=== PATIENT | female | born 1990 | race Hispanic/Latino ===

== ENCOUNTER 2024-01-16 14:03 | Emergency (ER) | payer SELFPAY ==
[2024-01-16 14:16] VITALS: BP 151/93; PULSE 96; RESP 16; TEMP 36.9; O2SAT 100
--- NOTE | 2024-01-16 16:06 | ED.SKABFB ---
HPI - Skin/Abscess/Foreign Bdy General Chief complaint: Skin/Abscess/Foreign Body Stated complaint: cyst Time Seen by Provider: 01/16/24 14:26 Source: patient Mode of arrival: ambulatory Limitations: no limitations History of Present Illness HPI narrative: Patient is a 33-year-old female who presents the ED with concern for a right-sided Bartholin's cyst. Patient reports history of Bartholin's cyst/ abscess around 7 years ago which required drainage and a Word catheter. She 1st began noticing an area of irritation a few days ago. States it has increased in size over the last couple of days to the point she is having a hard time ambulating today due to the pain. Has not taken anything for pain. Denies fevers. Related Data Allergies Allergy/AdvReac Type Severity Reaction Status Date / Time No Known Allergies Allergy Unverified 05/16/17 09:02 Review of Systems Review of Systems: All systems reviewed & are unremarkable except as noted in HPI. All systems reviewed & are unremarkable except as noted in HPI and below Exam Narrative: GENERAL: Well appearing, obese with BMI of 30.8, non-toxic, in no acute distress. HEAD: Normocephalic, atraumatic. RESPIRATORY: Airway patent, respirations nonlabored. CARDIOVASCULAR: Regular rate and rhythm PELVIC: Normal external genitalia. Large area of fullness throughout right inferior inner vulvar region, consistent with Bartholin's cyst/abscess. Focal TTP. Circular area of scarring in center of area of fullness. No abnormal genital lesions. No abnormal bleeding or discharge. MUSCULOSKELETAL: Moves all extremities. No gross deformities. SKIN: Warm, dry, normal color. NEURO: A&O X3. Speech clear. PSYCHIATRIC: Appropriate mood and affect. Normal interaction. Course Vital Signs Vital signs: Vital Signs Temperature 98.4 F 01/16/24 14:16 Pulse Rate 96 01/16/24 14:16 Respiratory Rate 16 01/16/24 14:16 Blood Pressure 151/93 H 01/16/24 14:16 Pulse Oximetry 100 01/16/24 14:16 Oxygen Delivery Room Air 01/16/24 14:16 Temperature 98.4 F 01/16/24 14:16 Pulse Rate 96 01/16/24 14:16 Respiratory Rate 16 01/16/24 14:16 Blood Pressure 151/93 H 01/16/24 14:16 Pulse Oximetry 100 01/16/24 14:16 Oxygen Delivery Room Air 01/16/24 14:16 Procedures Abscess I/D bartholin's gland: Date of Incision: 01/16/24 Time of Incision: 15:50 Side (if applicable): right Sedation/analgesia: none Local Anesthetic: lidocaine 1% Amount of anesthesia used (mL): 7 Technique: incised with #11 blade and probed loculations Amount of fluid expressed (mL): 30 Irrigation: Yes Packing used?: none I&D Results: Pus and Blood Complications: other (none) MDM - Skin/Abscess/Foreign Bdy MDM Narrative Medical decision making narrative: Exam consistent with Bartholin cyst/abscess. I & D performed. Patient tolerated procedure well. Will be started on Bactrim. Advised to follow-up with OBGYN for further evaluation and more definitive management. Advised to continue sitz baths/warm compresses. Given strict return precautions. She agrees with plan. D/C in stable condition. Medical Records Attestation: I reviewed the patient's medical records. Discharge Plan Discharge Clinical Impression: Abscess of Bartholin gland Patient Disposition: Home, Self-Care Condition: Stable Instructions: Antibiotic Form, Abscess (ED), Bartholin Cyst (ED), Sitz Bath (DC), Incision and Drainage (ED) Additional Instructions: Take antibiotics as prescribed. Recommend frequent sitz baths or warm compresses to area throughout the day. Follow up with your OBGYN for further evaluation. Return to the ED if you experience worsening or severe symptoms, severe pain, fevers, or any other symptoms of concern. Prescriptions: New sulfamethoxazole-trimethoprim [Bactrim DS] 800-160 mg tablet 1 tablet PO Q12H 7 Days Qty:
[2024-01-16] MEDS: SULFAMETHOXAZOLE/TRIMETHOPRIM 800/160 MG DS TABLET 1 TAB PO (16:30)
== END 2024-01-16 16:37 | disposition home or self-care (01) ==
PROVIDERS: Emergency Provider Physician Assistant
DX: N75.1 Abscess of Bartholin's gland (principal)
CPT/HCPCS: 56420; 99283; A9270

== ENCOUNTER 2024-11-09 10:49 | Emergency (ER) | payer SELFPAY ==
[2024-11-09 11:00] VITALS: BP 195/99; PULSE 76; RESP 18; TEMP 37; O2SAT 100
[2024-11-09 11:41] VITALS: BP 176/80; PULSE 67; RESP 20; O2SAT 100
--- NOTE | 2024-11-09 11:59 | ED_ITS ---
HPI - Recheck/Abnormal Lab/Rx General Chief Complaint: Recheck/Abnormal Lab/Rx Stated Complaint: high blood pressure today Time Seen by Provider: 11/09/24 11:52 Source: patient Mode of arrival: ambulatory Limitations: no limitations History of Present Illness HPI narrative: This is a 34 year old female that presents to the ER for high blood pressure. Reports she has known history of hypertension. Stopped her blood pressure medication a couple of months ago because she was wanting to get . She tried to make an appointment with PCP to discuss her blood pressure and it was elevated, she was sent to the ER. She is currently about 7 weeks . She is not having any symptoms. Denies chest pain, shortness of breath, abdominal pain, headache, vaginal bleeding. Related Data Allergies Allergy/AdvReac Type Severity Reaction Status Date / Time No Known Allergies Allergy Unverified 05/16/17 09:02 Review of Systems 2 Review of Systems: All systems reviewed & are unremarkable except as noted in HPI and below PMFSH Past Medical History Medical History (Updated 11/09/24 @ 14:59 by Altagracia Turner PA-C) History of hypertension Exam 2 Narrative: GENERAL: Well-appearing, well-nourished, and in no acute distress. HEAD: Normocephalic, atraumatic. EYES: EOMI. ENT: Nares clear, no rhinorrhea or epistaxis. Mucous membranes moist. Oropharynx without tonsillar hypertrophy exudate or other lesions. CHEST: Clear to auscultation. No respiratory distress. No wheezes rales or rhonchi HEART: Regular rate and rhythm. No murmur heard. Normal peripheral pulses. ABDOMEN: Soft, nontender, nondistended, normal active bowel sounds. EXTREMITIES: Normal range of motion. No edema. SKIN: Warm, dry, no rash. NEURO: No focal deficits. Alert and oriented x3. PSYCH: Normal mood and affect Course Consultations Consultation #1: Spoke with OB video production coordinator. Recommends starting patient on Labetalol 20mg twice daily. Will give first dose and make sure patient's blood pressure responds. He recommends follow up within one week Date: 11/09/24 Vital Signs Vital signs: Vital Signs Temperature 98.6 F 11/09/24 11:00 Pulse Rate 76 11/09/24 11:00 Respiratory Rate 18 11/09/24 11:00 Blood Pressure 195/99 H 11/09/24 11:00 Pulse Oximetry 100 11/09/24 11:00 Oxygen Delivery Room Air 11/09/24 11:00 Temperature 98.6 F 11/09/24 11:00 Pulse Rate 83 11/09/24 14:19 Respiratory Rate 18 11/09/24 14:19 Blood Pressure 160/81 H 11/09/24 14:19 Pulse Oximetry 99 11/09/24 14:19 Oxygen Delivery Room Air 11/09/24 11:00 MDM - Recheck/Abnormal Lab/Rx MDM Narrative Medical decision making narrative: Patient presents to the emergency department for elevated blood pressure reading. Reports known history of hypertension. She is supposed to take losartan. She was planning on getting so had stopped taking it months ago. Tried to establish with a PCP today who sent her to the ER for elevated blood pressure reading. She does not have any symptoms with this. Blood pressure initially elevated in the 190s systolic. This a down turn in the 160s without intervention initially. CBC metabolic panel without concerning findings. Urine with white blood cells, patient does not have any urinary symptoms. This will be sent for culture. Quantitative beta HCG 46,015. Spoke with OB video production coordinator. Recommends starting patient on Labetalol 20mg twice daily. Will give first dose and make sure patient's blood pressure responds. He recommends follow up within one week. Blood pressure has continued to trend down. Currently 135/79. She does report she has an OB she will be establishing with. I will also give her our OB on-call if she needs anything. She was given warnings to return to the ER Differential Diagnosis Differential diagnosis: Likely other (Hypertension, hypertensive urgency) Lab Data Attestation: I reviewed the patient's lab results. 11/09/24 12:07 11/09/24 12:07 Labs: Lab Results 11/09/24 Range/Units 12:07 WBC 11.6 H (4.5-10.0) K/mm3 RBC 4.69 (4.2-5.4) M/mm3 Hgb 11.8 L (12.0-15.0) g/dL Hct 36.8 L (37.0-47.0) % MCV 78.5 L (80-100) fl MCH 25.2 L (26-34) pg MCHC 32.1 (32-36) g/dl RDW 14.9 H (11.5-14.5) % Plt Count 271 (150-375) k/mm3 MPV 10.1 (7.4-10.4) fl Immature Gran % (Auto) 0.3 (0-0.5) % Neut % (Auto) 67.7 (45.5-73.1) % Lymph % (Auto) 20.9 (18.3-44.2) % [place] % (Auto) 5.8 (2.6-8.5) % Eos % (Auto) 4.9 H (0-4.4) % Baso % (Auto) 0.4 (0.2-1.2) % Lymph # (Auto) 2.42 (0.9-3.2) K/mm3 [place] # (Auto) 0.7 H (0.1-0.6) K/mm3 Eos # (Auto) 0.6 H (0-0.3) K/mm3 Baso # (Auto) 0.1 (0.0-0.1) K/mm3 Abs Immat Gran (auto) 0.04 H (0.00-0.031) K/mm3 Absolute Neuts (auto) 7.8 H (1.3-6.7) K/mm3 Absolute Nucleated RBC 0.000 (0.0-0.012) K/mm3 Nucleated RBC % 0.0 (0.0-0.2) % Sodium 135 L (137-145) mmol/L Potassium 3.4 (3.4-5.0) mmol/L Chloride 103 (98-107) mmol/L Carbon Dioxide 25 (22-30) mmol/L Anion Gap 7 (4-12) mmol/L BUN 10 (7-17) mg/dL Creatinine 0.66 L (0.7-1.0) mg/dL Estim Creat Clear Calc 101 ml/min Estimated GFR > 60 (59 - ) Glucose 82 (65-110) mg/dL Calcium 8.8 (8.4-10.2) mg/dL Total Bilirubin 0.1 L (0.2-1.3) mg/dL AST 24 (14-36) U/L ALT 22 (6-35) U/L Alkaline Phosphatase 100 (38-126) U/L Total Protein 7.7 (6.3-8.2) g/dL Albumin 3.8 (3.5-5.1) g/dL Beta HCG, Quant 58539.00 mIU/ML Urine Color Yellow (Yellow) Urine Appearance Cloudy H (Clear) Urine pH 6.5 (5.0-9.0) Ur Specific [place] 1.011 (1.001-1.035) Urine Protein 1+ H (Negative) mg/dL Urine Glucose (UA) Negative (Negative) mg/dL Urine Ketones Trace H (Negative) mg/dL Ur Blood (Man) Negative (Negative) Urine Nitrate Negative (Negative) Urine Bilirubin Negative (Negative) Urine Urobilinogen 0.2 (<2.0) mg/dL Leukocyte Esterase Rfl 3+ H (Negative) CLARK/UL Urine RBC 0-2 (0-2) /hpf Urine WBC >100 H (0-3) /hpf Ur Squamous Epith Cells Moderate (Few) /hpf Urine Bacteria 2+ H /hpf Urine Casts 3-5 Critical Care Time Critical Care Time Critical Care Time: No Discharge Plan Discharge Clinical Impression: Hypertension Qualifiers: Hypertension type: unspecified Qualified Code(s): I10 - Essential (primary) hypertension Patient Disposition: Home Condition: Improved Instructions: Antibiotic Form, Hypertension During (ED) Additional Instructions: Return to the ER if you experience fever, chest pain, shortness of breath, abdominal pain with nausea and vomiting, you are unable to keep down liquids or solids, vaginal bleeding, or any other symptoms that are concerning to you Take Labetalol as prescribed. Monitor your blood pressure daily at home and record these readings so you can bring them to your follow up appointment Follow up with your OB Patient Language: Faroese Prescriptions: New labetalol 200 mg tablet 200 mg PO Q12H 30 Days Qty: 60 0RF No Action sulfamethoxazole-trimethoprim [Bactrim DS] 800-160 mg tablet 1 tablet PO Q12H 7 Days Qty: 14 0RF Follow-up/Referrals: UNKNOWN,DOCTOR [Primary Care Provider] - Bubba Dumont MD [Physician] -
[2024-11-09 12:19] LABS: Hematocrit 36.8 % (37.0-47.0); Hemoglobin 11.8 g/dL (12.0-15.0); Immature Granulocyte Percent A 0.3 % (0-0.5); Lymphocytes Absolute Auto 2.42 K/mm3 (0.9-3.2); Mean Corpuscular HGB Conc 32.1 g/dl (32-36); Mean Corpuscular Hemoglobin 25.2 pg (26-34); Mean Corpuscular Volume 78.5 fl (80-100); Nucleated Red Blood Cells Absolute Auto 0.000 K/mm3 (0.0-0.012); Nucleated Red Blood Cells Perc 0.0 % (0.0-0.2); Platelet Count Result 271 k/mm3 (150-375); Red Blood Count 4.69 M/mm3 (4.2-5.4); White Blood Count 11.6 K/mm3 (4.5-10.0)
[2024-11-09 12:27] LABS: Add Urine Microscopic? YES; Appearance Urine Cloudy (Clear); Glucose Urine UA Negative (Negative); Leukocyte Esterase Ur 3+ LEU/UL (Negative); Nitrate Urine Negative (Negative); Specific Grav Ur 1.011 (1.001-1.035)
[2024-11-09 12:38] LABS: Alanine Aminotransferase 22 U/L (6-35); Albumin Level 3.8 g/dL (3.5-5.1); Alkaline Phosphatase 100 U/L (38-126); Anion Gap 7 mmol/L (4-12); Aspartate Amino Transferase 24 U/L (14-36); Bilirubin,Total 0.1 mg/dL (0.2-1.3); Blood Urea Nitrogen 10 mg/dL (7-17); Calcium 8.8 mg/dL (8.4-10.2); Carbon Dioxide 25 mmol/L (22-30); Chloride 103 mmol/L (98-107); Estimated CRCL calculation 101 ml/min; Estimated Glomerular Filt Rate > 60; Glucose 82 mg/dL (65-110); Potassium 3.4 mmol/L (3.4-5.0); Sodium 135 mmol/L (137-145); Total Protein 7.7 g/dL (6.3-8.2)
[2024-11-09 13:24] LABS: Beta HCG Quantitative 46015.00 mIU/ML
[2024-11-09 13:35] VITALS: PULSE 78
[2024-11-09] MEDS: LABETALOL HCL 100 MG TABLET 200 MG PO (13:35)
[2024-11-09 14:19] VITALS: BP 160/81; PULSE 83; RESP 18; O2SAT 99
[2024-11-09 15:08] VITALS: BP 135/79; PULSE 74; RESP 20; O2SAT 98
== END 2024-11-09 15:18 | disposition home or self-care (01) ==
PROVIDERS: Emergency Provider Physician Assistant
DX: O26.891 Other specified pregnancy related conditions, first trimester (principal); I10 Essential (primary) hypertension; Z79.899 Other long term (current) drug therapy; Z3A.01 Less than 8 weeks gestation of pregnancy
CPT/HCPCS: 36415; 80053; 81001; 84702; 85025; 87086; 99283; A9270